=== PATIENT | female | born 1940 | race Caucasian/White ===

== ENCOUNTER 2019-09-20 20:53 | Inpatient (IN) | payer MEDICARE, BC ==
[~2019-09-20] VITALS: Ht 152.4 cm; Wt 55.2 kg
[~2019-09-20 20:53] MED LIST: ASPIRIN 32325 MG/TAB PO; CLOPIDOGREL PO; FOLBIC PO; LEVOTHROID0.125 MG PO; LISINOPRIL PO; LOPRESSOR 225 MG/TAB PO; NIASPAN 500MG500 MG PO; POTASSIUM CHLO10 ME2 PO; PRAVACHOL80 MG PO; TRIAMTERENE/HCT1 CAP PO; TYLENOL 500MG500 MG PO
--- NOTE | 2019-09-20 22:10 | NUR ---
RECEIVED PER CART, 79 Y/O FEMALE WITH FRACTURED LEFT HUMERUS AND LEFT HIP. IS ALERT AND ORIENTED X3. HAS SLING ON TO LEFT ARM. SL TO RIGHT FOREARM. NO FAMILY ACCOMPANIED. PATIENT HAS EXPRESSIVE APHASIA AT TIMES AND CANNOT COMPLETE SENTENCES AT TIMES.
[2019-09-20 22:42] VITALS: BP 176/78; PULSE 119; TEMP 98.3
[2019-09-20] MEDS ORDERED: CATAPRES 0.1MG0.1 MG PO (22:46)
[2019-09-20] MEDS ORDERED: PRAVACHOL 20MG20 MG PO (22:48)
[2019-09-20] MEDS ORDERED: NORVASC 5MG5 MG/TAB PO (22:49)
[2019-09-20] MEDS ORDERED: SYNTHROID0.1 MG/TAB PO (22:50)
[2019-09-20] MEDS ORDERED: COZAAR100 MG PO (22:51)
[2019-09-20] MEDS ORDERED: CYANOCOBAL1000 MCG/M IM (22:55)
[2019-09-21] VITALS (7 sets, daily range): BP systolic 106–177; BP diastolic 31–83; PULSE 87–118; TEMP 97.8–98.8
--- NOTE | 2019-09-21 | NUR ---
Attempted to place #16fr sarkar catheter without success. Patient tries to use bedpan without success.
--- NOTE | 2019-09-21 00:48 | NUR ---
Medicated with Morphine 2mg IVP for pain to left shoulder and left hip.
--- NOTE | 2019-09-21 02:00 | NUR ---
Nurse Mechelle RESTREPO attempted to place sarkar catheter without success.
--- NOTE | 2019-09-21 03:18 | NUR ---
Medicated with Morphine 2mg IVP for pain to left shoulder and left hip.
--- NOTE | 2019-09-21 03:30 | NUR ---
Patient taken to CT per bed, tolerates well.
--- NOTE | 2019-09-21 03:45 | NUR ---
MEDICATED WITH HYDRALAZINE 10MG IVP FOR SBP 177.
[2019-09-21 05:00] LABS: BASO % 0.3 % (0.0-2.0); EOS % 0.2 % (0-4.0); GRAN # 7.8 (1.4-6.5); GRAN % 79.2 % (42.2-75.2); LYMPH # 1.4 (1.2-3.4); LYMPH % 14.3 % (20.0-51.0); MEAN CELL VOLUME 95 fl (80.0-100.0); MEAN CORPUSCULAR HEMOGLOBIN 32 pg (27.0-31.0); MEAN CORPUSCULAR HGB CONC 34 g/dl (33.0-37.0); MEAN PLATELET VOLUME 9.6 fl (7.4-10.4); MONO # 0.6 (0.1-0.6); MONO % 5.6 % (1.7-9.3); PLATELET COUNT 114 K/mm3 (130-400); RED BLOOD COUNT 3.41 M/mm3 (4.10-5.30); REDCELL DISTRIBUTION WIDTH-CV 12.2 % (11.5-14.5)
--- NOTE | 2019-09-21 05:00 | NUR ---
Made another attempt to cath patient using female cath kit, unable to place.
[2019-09-21 05:02] LABS: HEMATOCRIT 32.5 % (37.0-47.0)
[2019-09-21 05:10] LABS: INR 1.2 (0.8-3.0); PROTHROMBIN TIME 14.5 SECONDS (9.7-12.8)
[2019-09-21 05:13] LABS: ALBUMIN 3.7 gm/dL (3.5-5.0); BILIRUBIN,TOTAL 0.4 mg/dL (0.0-1.0); CALCIUM 8.5 mg/dL (8.4-10.2); CREATININE, serum 1.8 (0.52-1.25); TOTAL PROTEIN 6.1 gm/dL (6.4-8.2)
[2019-09-21 05:20] LABS: PRE ALBUMIN 25.7 mg/dL (17.6-36.0)
[2019-09-21 05:26] LABS: TROPONIN-I 0.055 ng/mL (0.000-0.035)
--- NOTE | 2019-09-21 05:30 | NUR ---
Reported elevated Troponin to [facility], also reported inability to place sarkar or straight cath patient. Was bladder scanned for 245cc.
--- NOTE | 2019-09-21 07:25 | NUR ---
AT BEDSIDE TO PLACE DIFFICULT BYNUM. 16F COUDE TO DD WITH MOD AMOUNTS OF CLOUDY YELLOW URINE NOTED. UA SENT.
--- NOTE | 2019-09-21 09:25 | NUR ---
ECHO AT BEDSIDE.
--- NOTE | 2019-09-21 11:30 | NUR ---
CONSULTING FOR PULM HTN.
--- NOTE | 2019-09-21 12:56 | NUR ---
Plan: Possible SNF, Patient and family not opposed to options. Are also willing to have home health. Assess: SW met with patient, and son in room. Patient gave verbal auth to speak infront of family. Patient reports that her [place] [facility] [place] Patient reports that use of Walker, cane and has access to wheelchair and other DME equipment. Patient reports the use of [facility] in [facility] where they reside. Patient does not have a current home health services provider. Patient reports they do not have a DPOA. Patient report that her Teressa can make decisions. EMR contact Lavelle can be contacted for emergency. Action: Awaiting on PT/OT screen to see what level of supports are needed. Will continue to follow patient.
[2019-09-21 14:09] LABS: MUCOUS Present /lpf; PH 5 (5-8); SQUAMOUS EPITHELIAL None Seen /hpf; URINE APPEARANCE Clear; URINE BACTERIA Rare /hpf; URINE BILIRUBIN Negative (NEGATIVE); URINE BLOOD 2+ (NEGATIVE); URINE COLOR Yellow; URINE GLUCOSE 1+ (NEGATIVE); URINE KETONE Trace (NEGATIVE); URINE LEUKOCYTE ESTERASE Negative (NEGATIVE); URINE NITRATE Negative (NEGATIVE); URINE PROTEIN(semi-quant) Negative (NEGATIVE); URINE RBC 0-2 /hpf; URINE UROBILINOGEN Negative (NEGATIVE)
[2019-09-21 14:47] LABS: COLLECTION METHOD CLEAN CATCH
[2019-09-21 17:59] LABS: ARTERIAL BLD GAS O2 SATURATION 92.1 % (92-100); ARTERIAL BLD GAS TCO2 CT 23.4; ARTERIAL BLOOD GAS BASE EXCESS -2.3 (-2-2); ARTERIAL BLOOD GAS HCO3 22.2 meq/L (22-26); ARTERIAL BLOOD GAS PCO2 37.2 mmHg (35-45); ARTERIAL BLOOD GAS PO2 60.9 mmHg (80-100); ARTERIAL BLOOD GAS pH 7.39 (7.35-7.45)
[2019-09-21 18:44] LABS: HEMOGLOBIN 10.3 g/dl (12.5-16.0); MEAN CELL VOLUME 95 fl (80.0-100.0); MEAN CORPUSCULAR HEMOGLOBIN 32 pg (27.0-31.0); MEAN CORPUSCULAR HGB CONC 33 g/dl (33.0-37.0); MEAN PLATELET VOLUME 9.4 fl (7.4-10.4); PLATELET COUNT 103 K/mm3 (130-400); RED BLOOD COUNT 3.23 M/mm3 (4.10-5.30); REDCELL DISTRIBUTION WIDTH-CV 12.2 % (11.5-14.5)
[2019-09-21 18:51] LABS: INR 1.2 (0.8-3.0); PROTHROMBIN TIME 13.8 SECONDS (9.7-12.8)
[2019-09-21 18:52] LABS: HEMATOCRIT 30.8 % (37.0-47.0)
[2019-09-21 18:54] LABS: PARTIAL THROMBOPLASTIN TIME 31.2 SECONDS (26.0-37.0)
--- NOTE | 2019-09-21 21:04 | NUR ---
PATIENT HAVING PAIN. MEDICATED WITH MORPHINE 2MG IVP. WAS GIVEN SPONGE BATH BY PCT. HAS ICE TO LEFT SHOULDER AND LEFT HIP. NEW IV SITE #22 TO RIGHT ARM ON SECOND ATTEMPT. VEINS ARE FRAGILE AND BLOW EASILY. HEPARIN GTT CONNECTED TO NEW RT ARM SITE, IVF INFUSING TO RIGHT AC SITE.
[2019-09-22] VITALS (8 sets, daily range): BP systolic 107–199; BP diastolic 39–78; PULSE 83–113; TEMP 97.7–99.1
--- NOTE | 2019-09-22 00:36 | NUR ---
APRESOLINE 10MG IV GIVEN FOR ELEVATED SBP 185.
--- NOTE | 2019-09-22 01:00 | NUR ---
IV SITE TO RIGHT AC LEAKING, DC'D. PATIENT HAS NUMEROUS BRUISING TO RIGHT ARM. STARTED NEW IV SITE TO LEFT HAND, #22 INSYTE ON FIRST ATTEMPT, IVF INFUSING AT 75CC/HR WITHOUT PROBLEM. HAS HEPARIN INFUSING TO RIGHT ARM IV SITE. LAB HERE TO DRAW HEP XA. PATIENT VERY SLEEPY, HAD DIFFICULTY STATING OWN NAME. WHEN ASKED ABOUT PAIN PATIENT REPLIES "YES, ALOT". PLACED MU WRAP AND ICE PACK TO RIGHT ARM.
--- NOTE | 2019-09-22 01:15 | NUR ---
PATIENT FEELING NAUSEATED, NEW ORDER FOR ZOFRAN 4MG IV GIVEN BY ANSHU SANTAMARIA. MEDICATED WITH MORPHINE 2MG IVP AND ZOFRAN 4MG IVP AT THIS TIME.
--- NOTE | 2019-09-22 01:37 | NUR ---
Lab reported elevated HepXA=1.61. Placed Hep gtt on hold for 2 hours, will recheck PTT and HEP XA at 0330.
--- NOTE | 2019-09-22 03:30 | NUR ---
Hep XA=1.01. Heparin gtt remains on hold and lab ordered for 0555. Patient resting well.
[2019-09-22 03:45] LABS: BASO # 0.1 (0.0-0.2); BASO % 0.7 % (0.0-2.0); EOS # 0.1 (0.0-0.7); EOS % 1.5 % (0-4.0); GRAN # 7.2 (1.4-6.5); GRAN % 80.2 % (42.2-75.2); LYMPH # 1.1 (1.2-3.4); LYMPH % 12.1 % (20.0-51.0); MEAN CELL VOLUME 97 fl (80.0-100.0); MEAN CORPUSCULAR HGB CONC 33 g/dl (33.0-37.0); MEAN PLATELET VOLUME 9.5 fl (7.4-10.4); MONO # 0.5 (0.1-0.6); MONO % 5.1 % (1.7-9.3); PLATELET COUNT 96 K/mm3 (130-400); RED BLOOD COUNT 3.04 M/mm3 (4.10-5.30); REDCELL DISTRIBUTION WIDTH-CV 12.5 % (11.5-14.5)
[2019-09-22 03:46] LABS: HEMATOCRIT 29.6 % (37.0-47.0); HEMOGLOBIN 9.7 g/dl (12.5-16.0); MEAN CORPUSCULAR HEMOGLOBIN 32 pg (27.0-31.0)
[2019-09-22 03:52] LABS: CALCIUM 8.4 mg/dL (8.4-10.2); CREATININE, serum 1.96 (0.52-1.25); POTASSIUM 4.5 mmol/L (3.4-5.0)
--- NOTE | 2019-09-22 06:45 | NUR ---
Patient medicated with Morphine 2mg IVP for left shoulder and left hip pain. Is getting VQ Scan this AM.
--- NOTE | 2019-09-22 08:00 | NUR ---
PATIENT IS CONFUSED, AT BASELINE X2. VSS. PATIENT APPEARS TO BE COMFORTABLE AT REST. SLING TO LUE. PATIENT'S FAMILY HOPING SHE WILL HAVE SURGERY TODAY PENDING VQ SCAN AND OTHER LABS. HOSPITALIST TALKING WITH PULMONOLOGY REGUARDING SURGERY TODAY. HEPARIN GTT CURRENTLY INFUSING PER PROTOCOL. SEE AM HEP-XA LEVELS. HEAD TO TOE ASSESSMENT UNCHANGED, SEE CHARTING.
--- NOTE | 2019-09-22 10:05 | NUR ---
SW attended clinical rounds with the team. VQ scan done this day. Awaiting clearance. After rounds SW met with the patient's , daughter and son to discuss post acute rehab, if recommended. services rep will continue to follow.
--- NOTE | 2019-09-22 10:44 | NUR ---
VQ SCAN NEGATIVE, ORDERS TO STOP HEPARIN GTT. HEPARIN GTT NOW OFF. RECHECK HEP-XA AT 1300. ORTHO AWARE OF PATIENT CLEARED FOR SURGERY. PATIENT IS HIGH RISK, FAMILY AND PATIENT AWARE. AWAITING TO HEAR FROM ORTHO
--- NOTE | 2019-09-22 13:45 | NUR ---
REPORTED OFF TO LACYURBANO Saavedra.
--- NOTE | 2019-09-22 18:22 | NUR ---
Patient resting in bed at this time. Patient appears calm and comfortable, patient is alert and paritally oriented, family at bedside. Patient responds to questions of pain by saying she doesn't know if she is hurting, does not appear to be in distress. Patient and family deny further needs at this time, call light within reach.
[2019-09-23] VITALS (7 sets, daily range): BP systolic 88–139; BP diastolic 36–109; PULSE 69–81; TEMP 97.8–99.4
--- NOTE | 2019-09-23 01:39 | NUR ---
PATIENT DOING WELL TONIGHT. APPEARS DROWSY. NOT ORIENTED. DIFFICULTY FOLLOWING INSTRUCTIONS. TOOK SCHEDULED MEDICATIONS WITHOUT ISSUE. IVF INFUSING. BYNUM CATHETER DRAINING CLEAR YELLOW URINE. DENIES PAIN OR NEED FOR PAIN MEDICATION. HAS BEEN RESTING COMFORTABLY THROUGHOUT NIGHT. DID NOT EAT VERY MUCH DINNER. SLING TO L SHOULDER. NO FURTHER NEEDS AT THIS TIME. WILL CONTINUE TO MONITOR.
--- NOTE | 2019-09-23 10:08 | NUR ---
PT CONTINUES TO BE CONFUSED. ASSISTED WITH BREAKFAST. LEFT SHOULDER AND HIP FX. PO PAIN MEDS GIVEN ORDERED.
[2019-09-23 10:38] LABS: BASO # 0.1 (0.0-0.2); BASO % 0.7 % (0.0-2.0); EOS # 0.4 (0.0-0.7); GRAN # 6.3 (1.4-6.5); GRAN % 73.2 % (42.2-75.2); LYMPH # 1.3 (1.2-3.4); LYMPH % 14.6 % (20.0-51.0); MEAN CELL VOLUME 96 fl (80.0-100.0); MEAN CORPUSCULAR HGB CONC 34 g/dl (33.0-37.0); MEAN PLATELET VOLUME 9.7 fl (7.4-10.4); MONO # 0.5 (0.1-0.6); MONO % 6.1 % (1.7-9.3); PLATELET COUNT 107 K/mm3 (130-400); RED BLOOD COUNT 2.71 M/mm3 (4.10-5.30); REDCELL DISTRIBUTION WIDTH-CV 12.4 % (11.5-14.5)
[2019-09-23 10:44] LABS: HEMATOCRIT 25.9 % (37.0-47.0); HEMOGLOBIN 8.8 g/dl (12.5-16.0); MEAN CORPUSCULAR HEMOGLOBIN 32 pg (27.0-31.0)
[2019-09-23 10:54] LABS: CALCIUM 8.4 mg/dL (8.4-10.2); CREATININE, serum 1.9 (0.52-1.25); POTASSIUM 4.1 mmol/L (3.4-5.0)
--- NOTE | 2019-09-23 11:49 | NUR ---
The patient's son, Lavelle Rosario phone number and the patient's , Javier phone number, .
--- NOTE | 2019-09-23 12:34 | NUR ---
famliy refusing carotid study since pt is not a surgical candidate.
--- NOTE | 2019-09-23 15:28 | NUR ---
CARRIE met with the patient, patient's , Javier and daughter, Vicki to present Medicare.gov's list of Inpatient Rehab facilities and Nursing facilities. The first choice is [facility], second choice is [facility] and third choice is [facility]. horticultural services supervisor will continue to follow.
--- NOTE | 2019-09-23 15:37 | NUR ---
F[employer] In[employer] Servicer faxed referrals to [facility], [facility], and [facility]. CARRIE contacted Kaykay, therapy tech at [facility] who advised they would not be able to accept today. Kaykay will check with senior sustainability consultant physician, Dr. Abrahma about possibly taking tomorrow. Dr. Abraham is patient's PCP. [facility] advised they may not be able to take tomorrow since tomorrow is [place]. CARRIE provided senior sustainability consultant SW number to call tomorrow if they are able to take. CARRIE contacted Aurora at [facility] who advised they would not know if they had an available bed until . CARRIE contacted Shira at [facility] who advised SW Lisa was gone and that they likely would not do an admission on [facility] unless absolutely necessary. CARRIE provided this update to Fl[facility] BUTLER and to [facility]. CARRIE spoke with patient's and family to provide udpate. Patient's , Javier advised he thinks [facility] will be best place for patient. Javier advised he does not think patient can be transported in a car by family. CARRIE let Javier know that EMS transport would be an out of pocket cost. Javier expressed understanding. CARRIE to continue to follow.
--- NOTE | 2019-09-23 18:22 | NUR ---
WHILE CONDUCTING NEURO CHECKS PT WILL NOT PARTICIPATE.
--- NOTE | 2019-09-23 20:00 | NUR ---
Report received. Assumed care for rn tele. Very drowsy-denies pain-no s/s of pain noted. Denies nausea/shortness of breath. Is A&O to self only-confused as to where she is/why or month. New ice pack to left hip. TEDs/SCDs bilat. Foely cath with clear yellow urine. Right AC IV flushes without difficulty. Call light in reach/bed in low/wheels locked. Will monitor.
[2019-09-24] VITALS (8 sets, daily range): BP systolic 101–158; BP diastolic 30–86; PULSE 67–83; TEMP 97.6–99.3
[2019-09-24 08:28] LABS: CALCIUM 8.6 mg/dL (8.4-10.2); CREATININE, serum 1.93 (0.52-1.25); POTASSIUM 3.9 mmol/L (3.4-5.0)
--- NOTE | 2019-09-24 09:30 | NUR ---
Patient alert, non verbal. See assesment. LUE with sling in place, neuros intact, pulses palpable. LLE with neuros intact, pulses palpable. Patient does not follow commands, unable to perform AROM, PROM performed. Kan catheter patent and draining clear yellow urine. No s/s discomfort noted.
--- NOTE | 2019-09-24 11:04 | NUR ---
Nata from [facility] reports they can accept the patient for a [facility] stay at discharge. Lucille from [facility] reports they cannot accept this day and SW will have to call back tomorrow, 09/25 to check for availablity. supervisor gate services will continue to follow.
--- NOTE | 2019-09-25 00:30 | NUR ---
PATIENT DOING WELL TONIGHT. INCREASINGLY AGITATED. ALERT BUT NOT ORIENTED. HAS BEEN VERBAL THIS SHIFT. LUE WITH SLING, NEUROS INTACT. LLE NEUROS INTACT. TOOK SCHEDULED MEDICATIONS CRUSHED IN PUDDING. BYNUM DRAINING CLEAR YELLOW URINE. BP INCREASING, 158/46, POTADAMRU INFORMED, WILL TREAT WITH HYDRALAZINE WHEN SBP>170. WILL CONTINUE TO MONITOR THIS BP. NO FURTHER NEEDS AT THIS TIME.
[2019-09-25 02:30] VITALS: BP 143/53; PULSE 71
[2019-09-25 08:28] VITALS: BP 159/49; PULSE 72; TEMP 98
[2019-09-25 08:37] LABS: BASO # 0.1 (0.0-0.2); BASO % 1.1 % (0.0-2.0); EOS # 0.3 (0.0-0.7); EOS % 4.7 % (0-4.0); GRAN # 3.7 (1.4-6.5); GRAN % 66.1 % (42.2-75.2); LYMPH % 17.4 % (20.0-51.0); MEAN CELL VOLUME 95 fl (80.0-100.0); MEAN CORPUSCULAR HGB CONC 34 g/dl (33.0-37.0); MEAN PLATELET VOLUME 10.5 fl (7.4-10.4); MONO # 0.6 (0.1-0.6); MONO % 10.2 % (1.7-9.3); PLATELET COUNT 137 K/mm3 (130-400); RED BLOOD COUNT 2.87 M/mm3 (4.10-5.30)
[2019-09-25 08:39] LABS: HEMATOCRIT 27.3 % (37.0-47.0); HEMOGLOBIN 9.2 g/dl (12.5-16.0); MEAN CORPUSCULAR HEMOGLOBIN 32 pg (27.0-31.0)
[2019-09-25 08:54] LABS: CALCIUM 9.2 mg/dL (8.4-10.2); CREATININE, serum 2.03 (0.52-1.25); POTASSIUM 3.7 mmol/L (3.4-5.0)
[2019-09-25] MEDS ORDERED: LASIX 20MG TABL20 MG PO (11:11)
[2019-09-25] MEDS ORDERED: ULTRAM 50MG TAB50 MG PO (11:13)
--- NOTE | 2019-09-25 11:26 | NUR ---
Patient alert, confused. See assessment. LUE with sling in place, pulses palpable, neuros intact. LLE with pulses palpable, neuros intact. Kan catheter in place and draining clear yellow urine. No s/s pain or discomfort.
--- NOTE | 2019-09-25 11:39 | NUR ---
The patient is to discharge this day, 09/25 to [facility]. CARRIE presented the IM form to the patient and the patient's and son. They understood and patient's signed the form. A copy was provided to the patient and original was placed in the chart. Lisa from [facility] can transport the patient at approximately 1300. CARRIE informed the team and family, all were in agreeance. CARRIE faxed discharge orders. There are no addtional needs at this time.
[2019-09-25 13:01] VITALS: BP 159/49; PULSE 72; TEMP 98
--- NOTE | 2019-09-25 13:15 | NUR ---
Patient discharged to [facility] in [place] via [facility] transporation/wheelchair. Paperwork sent. Attempted x1 to call report. Discharged at 1305.
--- NOTE | 2019-09-25 13:21 | NUR ---
Report called to Bruce at [facility].
== END 2019-09-25 13:05 | DRG 535 ==
LOC: SURG 20:53
PROVIDERS: Internal Medicine Critical Care Medicine; Nurse Practitioner Family; Physician Assistant; ADMIT Student in an Organized Health Care Education/Training Program
PROC: 0T9B70Z Drainage of Bladder with Drainage Device, Via Natural or Artificial Opening (ICD-10-PCS; principal; 2019-09-21)
DX: S72.002A Fracture of unspecified part of neck of left femur, initial encounter for closed fracture (principal); J96.01 Acute respiratory failure with hypoxia; I21.4 Non-ST elevation (NSTEMI) myocardial infarction; S42.202A Unspecified fracture of upper end of left humerus, initial encounter for closed fracture; E44.0 Moderate protein-calorie malnutrition; F03.90 Unspecified dementia, unspecified severity, without behavioral disturbance, psychotic disturbance, mood disturbance, and anxiety; E78.5 Hyperlipidemia, unspecified; I25.10 Atherosclerotic heart disease of native coronary artery without angina pectoris; N18.9 Chronic kidney disease, unspecified; N90.5 Atrophy of vulva; D51.0 Vitamin B12 deficiency anemia due to intrinsic factor deficiency; D69.6 Thrombocytopenia, unspecified; K76.9 Liver disease, unspecified; I12.9 Hypertensive chronic kidney disease with stage 1 through stage 4 chronic kidney disease, or unspecified chronic kidney disease; K58.9 Irritable bowel syndrome, unspecified; E03.9 Hypothyroidism, unspecified; I27.20 Pulmonary hypertension, unspecified; Z88.8 Allergy status to other drugs, medicaments and biological substances; Z88.1 Allergy status to other antibiotic agents; Z95.5 Presence of coronary angioplasty implant and graft; Z90.49 Acquired absence of other specified parts of digestive tract; Z79.82 Long term (current) use of aspirin; Z87.891 Personal history of nicotine dependence; I69.320 Aphasia following cerebral infarction; W01.0XXA Fall on same level from slipping, tripping and stumbling without subsequent striking against object, initial encounter; Y93.89 Activity, other specified; Y92.89 Other specified places as the place of occurrence of the external cause; Y99.8 Other external cause status
CPT/HCPCS: 99223-AI; 99232-AI; 99239; A9284; A9540; A9567; J0360; J1644; J1940; J2270; J2405